=== PATIENT | male | born 1970 | race Caucasian/White ===

== ENCOUNTER 2020-01-24 03:25 | Emergency (ER) | payer MEDICAID ==
[~2020-01-24] VITALS: Ht 177.8 cm; Wt 100.0 kg
--- NOTE | 2020-01-24 03:33 | NUR ---
Called [facility]. Case number obtained: [id number].
[2020-01-24] MEDS ORDERED: ketorolac trometh. 30mg/ml inj. IM ONE (04:00)
[2020-01-24 04:13] VITALS: BP 165/101
== END 2020-01-24 04:18 | disposition home or self-care (01) ==
LOC: ER 03:26
DX: S40.011A Contusion of right shoulder, initial encounter (principal); F17.210 Nicotine dependence, cigarettes, uncomplicated; F12.90 Cannabis use, unspecified, uncomplicated; Z98.890 Other specified postprocedural states; Z72.89 Other problems related to lifestyle; Z56.0 Unemployment, unspecified; Z88.8 Allergy status to other drugs, medicaments and biological substances; Y08.02XA Assault by strike by baseball bat, initial encounter; Y93.64 Activity, baseball; Y92.89 Other specified places as the place of occurrence of the external cause; Y99.8 Other external cause status
CPT/HCPCS: 73030; 96372; 99283; J1885

== ENCOUNTER 2020-06-16 10:10 | Emergency (ER) | payer MEDICAID, OTHER ==
[~2020-06-16] VITALS: Ht 175.3 cm; Wt 90.0 kg
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
[2020-06-16] MEDS ORDERED: proparacaine 0.5% ophthalmic drops 15ml EACHEYE ONE (11:30)
[2020-06-16 12:49] VITALS: BP 131/11
--- NOTE | 2020-06-16 13:57 | NUR ---
FLUSHING LEFT EYE WITH 500 NS AND TRUPTI LENS PER ISAURA HOPKINS. PT TO [facility]
[2020-06-16] MEDS ORDERED: ERYT1OIN6 LEFTEYE (14:02)
--- NOTE | 2020-06-16 14:07 | NUR ---
PT DENIES ANY PAIN POST IRRIGATION
== END 2020-06-16 14:18 | disposition home or self-care (01) ==
LOC: ER 10:10 → EEVIPCON 10:10 → ER 14:18
DX: S05.02XA Injury of conjunctiva and corneal abrasion without foreign body, left eye, initial encounter (principal); F17.200 Nicotine dependence, unspecified, uncomplicated; F12.90 Cannabis use, unspecified, uncomplicated; Z72.89 Other problems related to lifestyle; Z56.0 Unemployment, unspecified; Z98.890 Other specified postprocedural states; Z88.8 Allergy status to other drugs, medicaments and biological substances; X58.XXXA Exposure to other specified factors, initial encounter; Y93.89 Activity, other specified; Y92.89 Other specified places as the place of occurrence of the external cause; Y99.8 Other external cause status
CPT/HCPCS: 99282; 99284

== ENCOUNTER 2021-03-30 20:24 | Emergency (ER) | payer OTHER, MEDICAID ==
[~2021-03-30] VITALS: Ht 175.3 cm; Wt 109.1 kg
[2021-03-30] MEDS ORDERED: acetaminophen 325mg tablet PO ONE (22:35)
[2021-03-30] MEDS ORDERED: ketorolac trometh. 30mg/ml inj. IM ONE (22:35)
[2021-03-30 23:46] VITALS: BP 157/96
== END 2021-03-30 23:49 | disposition home or self-care (01) ==
LOC: ER 20:25
DX: F07.81 Postconcussional syndrome (principal); M25.551 Pain in right hip; I10 Essential (primary) hypertension; G89.29 Other chronic pain; F12.90 Cannabis use, unspecified, uncomplicated; Z98.890 Other specified postprocedural states; Z72.89 Other problems related to lifestyle; Z86.73 Personal history of transient ischemic attack (TIA), and cerebral infarction without residual deficits; Z56.0 Unemployment, unspecified; Z88.8 Allergy status to other drugs, medicaments and biological substances; V87.7XXA Person injured in collision between other specified motor vehicles (traffic), initial encounter; Y93.89 Activity, other specified; Y92.488 Other paved roadways as the place of occurrence of the external cause; Y99.8 Other external cause status
CPT/HCPCS: 96372; 99283; J1885

== ENCOUNTER 2022-04-12 19:26 | Emergency (ER) | payer MEDICAID ==
[~2022-04-12] VITALS: Ht 175.3 cm; Wt 102.3 kg
[2022-04-12 19:38] VITALS: BP 180/114
[2022-04-12] MEDS ORDERED: HYDROcodone/acetaminophen 5mg/325mg tablet PO ONE (20:30)
[2022-04-12] MEDS ORDERED: ondansetron 4mg rapidly disintigrating tab PO ONE (20:30)
[2022-04-12] MEDS ORDERED: ketorolac tromethamine 15mg/ml inj. IM ONE (20:30)
--- NOTE | 2022-04-12 20:41 | NUR ---
po meds x2 given im given
[2022-04-12] MEDS ORDERED: HYDR-3965 PO (21:27)
[2022-04-12] MEDS ORDERED: ONDA4TAB12 PO (21:27)
== END 2022-04-12 21:54 | disposition home or self-care (01) ==
LOC: ER 19:27
DX: S62.631A Displaced fracture of distal phalanx of left index finger, initial encounter for closed fracture (principal); S62.502A Fracture of unspecified phalanx of left thumb, initial encounter for closed fracture; I10 Essential (primary) hypertension; G89.29 Other chronic pain; M54.50 Low back pain, unspecified; Z88.8 Allergy status to other drugs, medicaments and biological substances; Z56.0 Unemployment, unspecified; X58.XXXA Exposure to other specified factors, initial encounter; Y93.89 Activity, other specified; Y92.89 Other specified places as the place of occurrence of the external cause; Y99.8 Other external cause status
CPT/HCPCS: 29125; 73130; 96372; 99283; J1885; A6449

== ENCOUNTER 2022-04-21 14:42 | Emergency (ER) | payer MEDICAID ==
[~2022-04-21] VITALS: Ht 177.8 cm; Wt 100.0 kg
[~2022-04-21 14:42] MED LIST: ONDA4TAB12 PO
[2022-04-21 14:59] VITALS: BP 175/105
[2022-04-21] MEDS ORDERED: ONDA4TAB12 PO (15:03)
[2022-04-21] MEDS ORDERED: HYDR-3965 PO (15:03)
[2022-04-21] MEDS ORDERED: SULF1TAB45 PO (15:03)
== END 2022-04-21 15:01 | disposition home or self-care (01) ==
LOC: ER 14:43
DX: S62.202A Unspecified fracture of first metacarpal bone, left hand, initial encounter for closed fracture (principal); S62.631A Displaced fracture of distal phalanx of left index finger, initial encounter for closed fracture; I10 Essential (primary) hypertension; Z88.5 Allergy status to narcotic agent; Z56.0 Unemployment, unspecified; X58.XXXA Exposure to other specified factors, initial encounter; Y93.89 Activity, other specified; Y92.89 Other specified places as the place of occurrence of the external cause; Y99.8 Other external cause status
CPT/HCPCS: 99283

== ENCOUNTER 2022-11-16 16:45 | Emergency (ER) | payer MEDICAID ==
[~2022-11-16] VITALS: Ht 172.7 cm; Wt 79.5 kg
[2022-11-16 16:49] VITALS: BP 184/109
[2022-11-16] MEDS ORDERED: naproxen 500mg tablet PO ONE (17:15)
== END 2022-11-16 17:26 | disposition home or self-care (01) ==
LOC: ER 16:45
DX: S00.83XA Contusion of other part of head, initial encounter (principal); I10 Essential (primary) hypertension; G89.29 Other chronic pain; F12.90 Cannabis use, unspecified, uncomplicated; Z88.8 Allergy status to other drugs, medicaments and biological substances; Z56.0 Unemployment, unspecified; W18.39XA Other fall on same level, initial encounter; Y93.89 Activity, other specified; Y92.89 Other specified places as the place of occurrence of the external cause; Y99.8 Other external cause status
CPT/HCPCS: 99283